=== PATIENT | female | born 1995 | race Caucasian/White ===

== ENCOUNTER 2021-02-27 03:34 | Inpatient (IN) | payer OTHER ==
[~2021-02-27 03:34] MED LIST: BUTORPHANOL 1 MG/ML INJ IV PRN; CARBOPROST TROME 250 MCG/ML IM PRN; METHYLERGONOVINE 0.2MG/ML AMP IM PRN; PROMETHAZINE INJ 25 MG/ML AMP IM PRN
--- OUTSIDE RECORDS SUMMARY | 2021-02-27 03:37 | XMS REPORT | Continuity of Care Document ---
:1995 Author Organization [facility] t Address [facility] [place] [address] [place] [id number] Care Team Providers Name Role Phone RUSSELL Attending Clinician Unavailable AKILAUX Attending Clinician Unavailable RUSSELL Admitting Clinician Unavailable FESTUS Admitting Clinician Unavailable Problems This patient has no known problems. Allergies, Adverse Reactions, Alerts This patient has no known allergies or adverse reactions. Medications This patient has no known medications. Procedures This patient has no known procedures. Results Test Description Test Time Test Comments Results Result Sourc e Comments XR CHEST 2 PA 2019-02-27 Procedure: XR LATERAL 05:54:23 SHOULDER MINIMUM 2 VIEWS, left, XR CHEST 2 PA LATERALOrder Date: 02/26/2019 8:29 PMOrdering Provider: SUE Birminghaminical Indication: [id number]: PainComparison: NoneFindings:No fracture, focal osseous destruction, or malalignment. Joint spaces arepreserved. Soft tissues are unremarkable.Lungs are clear. No pleural effusion or pneumothorax is present. Heart size isnormal.IMPRESSION:N o acute pulmonary process.No acute abnormality in the left shoulder.This final report was electronically signed by Dr Eileen Chapin MD 02/27/20195:47 AMDictated By: FROYLAN CHAPINKDate: 02/27/2019 05:47 XR SHOULDER 2019-02-27 Procedure: XR MINIMUM 2 VIEWS 05:54:16 SHOULDER MINIMUM 2 VIEWS, left, XR CHEST 2 PA LATERALOrder Date: 02/26/2019 8:29 PMOrdering Provider: SUE Lynch Indication: [id number]: PainComparison: NoneFindings:No fracture, focal osseous destruction, or malalignment. Joint spaces arepreserved. Soft tissues are unremarkable.Lungs are clear. No pleural effusion or pneumothorax is present. Heart size isnormal.IMPRESSION:N o acute pulmonary process.No acute abnormality in the left shoulder.This final report was electronically signed by Dr Eileen Chapin MD 02/27/20195:47 AMDictated By: Jass CHAPIN: 02/27/2019 05:47 STAT LAB , URINE 2019-02-26 20:21:00 Test Item Value Reference Range Interpretation Comme nts (Urine) (test code = PREGU) Negative ONLY AVAILABLE [id number] LAB CHEM [id number] 14:12:00 Test Item Value Reference Range Interpretation Comments Sodium (test code = NA) 138 mmol/l 138-146 Potassium (test code = K) 3.7 mmol/l 3.5-4.9 Chloride (test code = CL) 104 mmol/l 98-109 IONIZED CALCIUM (test code = ICA) 1.13 CO2 (test code = CO2) 25 mmol/l 24-29 Glucose (test code = GLU) 98 mg/dl 70-105 BUN (test code = BUN) 16 mg/dl 6-17 Creatinine (test code = CREA) 0.7 mg/dl 0.6-1.3
[2021-02-27] MEDS ORDERED: Ringers Lactate 1,000 ML IV PRN (04:00)
[2021-02-27] MEDS ORDERED: Ringers Lactate 1,000 ML IV SCH (04:00)
[2021-02-27 04:40] LABS: Urine Appearance TURBID (Clear); Urine Bilirubin NEGATIVE (Negative); Urine Blood 1+ (Negative); Urine Color YELLOW (Yellow); Urine Glucose NEGATIVE (Negative); Urine Protein TRACE (Negative); Urine Specific Gravity 1.025 (1.005-1.030); Urine pH 6.5 (5.0-7.0)
[2021-02-27 04:46] LABS: Absolute Lymphocytes (CBC) 2.5 K/uL (0.7-4.9); Basophils % 0.2 % (0-1.3); Hematocrit 34.6 % (36.0-45.0); Lymphocytes % 19.3 % (15.3-44.8); MPV 7.8 fL (7.6-11.3); RBC Red Blood Cell Count 3.64 M/uL (3.86-4.86)
[2021-02-27] MEDS: OXYTOCIN/LR 20 UNIT/1,000 ML BAG IV SCH ×2 (04:58→05:27)
[2021-02-27 05:23] VITALS: BMI 27.4
[2021-02-27 06:21] LABS: Urine Bacteria >50 /HPF (<20)
[2021-02-27] MEDS ORDERED: ROPIVACAINE HCL 0.2% 20ML AMP IV ONE (07:01)
[2021-02-27] MEDS ORDERED: FENTANYL CITR 100 MCG/2 ML IV ONE (07:01)
[2021-02-27] MEDS ORDERED: BUPIVACAINE 0.25% PF 10 ML VIAL IJ PRN (07:01)
[2021-02-27] MEDS ORDERED: FENTANYL/BUPIVACAINE/NS/PF 200 MCG/100 ML BAG EP PRN (07:01)
[2021-02-27] MEDS ORDERED: LIDOCAINE 1% MPF 30 ML VIAL SQ ONE (07:03)
[2021-02-27] MEDS ORDERED: 0.2% ROPIVACAINE (200 MG/100 ML) BAG EP ONE (07:30)
--- NOTE | 2021-02-27 09:00 | PREOPHP ---
Date of Admission: 02/27/2021 History Of Present Illness: Ross Diamond is a 26-year-old 2, para 1, 39 weeks, for inductio n. Pros and cons of this thoroughly discussed prior to admission. Family History: Mother and father with hypertension. Otherwise noncontributory. Past Medical History: No serious medical illnesses. No surgeries. Allergies: NO ALLERGIES. Social History: No smoking. Medications: No medicines other than vitamins and iron. Physical Examination: HEENT: Clear. Pupils equal, round, reactive to light and accommodation. Conjunctivae well perfused . No oral, lingual, or buccal lesions. Chest and Lung: Clear. Heart: Without murmurs, thrills, heaves, or rubs. Breasts: Without masses. Abdomen: Term size. Extremities: Clear without edema, cyanosis, or clubbing. Cervix is 3, possibly even 3.5, still slig htly posterior, 50% effaced, delfina regularly. FHT is normal, reactive. Rupture of membranes a nd copious amount of normal appearing fluid was obtained. Vertex well applied to the cervix. Assessment And Plan: Anticipate more active labor. The patient will probably be requesting epidural . She is nonimmune to rubella. This will be attended to in the . She is Rh positive, strep negative. JEANAC/MODL Voice ID: [id number]
--- NOTE | 2021-02-27 13:44 | OP ---
Surgeon: Micahel Logan MD 26-year-old 2, para 1, 39 weeks, for induction. Pros and cons of this thoroughly discussed p rior to admission, Rh positive, nonimmune to rubella. This has been discussed and we will offer ann ent rubella immunization during this hospitalization. Strep negative. 3 to 3.5 cm this morning. Ru pture of membranes, clear fluid. The patient received epidural anesthesia and within 25 minutes deli mike of a 6 pounds 13 ounces male infant. Apgars 9 and 9. Epidural worked quite well. No episioto my. No lacerations. Very loose nuchal cord. No problems with the baby. Schultze delivery of the p lacenta, which was inspected and noted to be intact and normal. Less than 200 cc blood loss. Tolera erinn all procedures well. Final Diagnoses: Term intrauterine 39 weeks, labor induction, vaginal delivery, epidural a nesthesia. Very loose nuchal cord. Rubella immunization offered. MITUL/GILMA Voice ID: [id number] Report ID: [id number]
[2021-02-27] MEDS ORDERED: IBUPROFEN 200 MG TAB PO PRN (20:25)
[2021-02-27] MEDS ORDERED: Oxycodone HCl/Acetaminophen 1 TAB TAB PO PRN (20:25)
[2021-02-27] MEDS ORDERED: ACETAMINOPHEN 500 MG TAB PO PRN (20:25)
[2021-02-28] MEDS ORDERED: MEASLES,MUMPS,RUBELLA VAC 0.5ML SQVAC ONE (07:15)
[2021-02-28] MEDS ORDERED: Tdap (Diph,Pertuss(Acell),Tet Vac) 0.5 ML SYR IMVAC ONE (07:16)
[2021-02-28 12:04] VITALS: BP 136/83; TEMP 97.7
[2021-02-28 21:12] LABS: RPR (Rapid Plasma Reagin) NON-REACT (NON-REACT)
[2021-03-02 23:45] LABS: HBsAG Nonreactive (Nonreactive)
--- NOTE | 2021-03-03 12:27 | DS ---
Date of Discharge: 02/28/2021 Hospital Course: 26-year-old 2, para 1, at 39 weeks gestation, delivered of a 6 pounds 13 ou nces male infant, Apgars 9 and 9, very loose nuchal cord x1. No episiotomy. No laceration. Holguin e delivery of the placenta. Estimated blood loss 200 cc or less. Rh positive, nonimmune to Rubella. Negative strep. ; afebrile, ambulating, voiding. Lochia is normal. She will be dismiss ed later today, to report back to my office in 6 weeks for followup, to report any temperature elevat ion of 100 degrees or greater, severe pain, heavy bleeding, or any other type of abnormalities. Requ ests no analgesics on dismissal. No post epidural problems. Immunizations including rubella again d iscussed and suggested. Final Diagnoses: Term intrauterine . Vaginal delivery. Epidural anesthesia. Rubella immu nization advised. Other immunizations offered. MITUL/GILMA Voice ID: [id number] Report ID: [id number]
== END 2021-02-28 13:00 | disposition home or self-care (01) | DRG 807 ==
LOC: 2ND-WC 03:34
PROVIDERS: ADMIT Specialist; ATTEND Specialist
PROC: 10E0XZZ Delivery of Products of Conception, External Approach (ICD-10-PCS; principal; 2021-02-27)
PROC: 10907ZC Drainage of Amniotic Fluid, Therapeutic from Products of Conception, Via Natural or Artificial Opening (ICD-10-PCS; 2021-02-27)
PROC: 3E033VJ Introduction of Other Hormone into Peripheral Vein, Percutaneous Approach (ICD-10-PCS; 2021-02-27)
DX: O80 Encounter for full-term uncomplicated delivery (principal); Z37.0 Single live birth; Z3A.39 39 weeks gestation of pregnancy; Z23 Encounter for immunization
CPT/HCPCS: 36415; 81001; 85025; 86592; 86901; 87086; 87088; 87340; 90471; 90707; 90715; J0595; J2210; J2550; J2590; J2795; J3010; J7120; U0002